=== PATIENT | male | born 2005 | race Two or more races ===

== ENCOUNTER 2024-12-22 09:19 | Outpatient (AMB) | payer MEDICAID, SELFPAY ==
[2024-12-22 09:33] VITALS: BMI 38.3
--- NOTE | 2024-12-22 09:33 | MHC.AMNUTRGE ---
VS Expanded 12/22/24 09:33 12/22/24 09:46 Height 5 ft 7.13 in 5 ft 7 in Weight 245 lb 9.519 oz 248 lb BMI 38.3 38.8 Intake Visit Reasons: Obesity Allergies No Known Allergies (No Known Allergies*) Allergy (Unverified 12/18/24 15:31) Nutrition Presentation Details: Pt presents MNT for obesity Pt reports gradually working on diet modifications. Patient reports he weighed 300 lbs about a year ago . Patient reports working on reducing sugars Food frequency: Fruits: 0-1 per day Fish: 0-1 per week Dairy: Greater than 5 servings per day Vegetables: 2 to 3 times a week Cookies pastries similar: Working on reducing Physical activity: Currently sedentary Alcohol smoking: Denies BS Monitoring Most Recent Diabetes Results: Cholesterol 153 MG/DL 12/17/17 HDL Cholesterol 45 MG/DL 12/17/17 Triglycerides 157 MG/DL 12/17/17 Creatinine, (0.5-1.4) 0.84 MG/DL 12/17/17 BUN, (9-16) 10 MG/DL 12/17/17 Sodium, (135-145) 137 MMOL/L 12/17/17 Potassium, (3.3-5.1) 4.3 MMOL/L 12/17/17 Chloride, (96-108) 103 MMOL/L 12/17/17 Calcium, (8.4-10.2) 10.2 MG/DL 12/17/17 AST, (5-37) 20 U/L 12/17/17 ALT, (0-40) 21 U/L 12/17/17 Total Protein, (6.5-8.0) 7.0 G/DL 12/17/17 Albumin, (3.5-5.0) 4.4 G/DL 12/17/17 VRG-Jirpeyq-Hb.Jeor Equation Height: 5 ft 7 in Weight: 248 lb Resting Metabolic Rate: 2094.01 Calculated Activity Level: Sedentary Calories Needed to Maintain Weight: 2512.81 Diagnosis Nutrition problem #1: overweight/obesity As related to (etiology) #1: excess energy intake and physical inactivity As evidenced by (sign/symptom) #1: high BMI Assessment & Plan Assessment & Plan (1) Obesity (BMI 30-39.9): Code(s): E66.9 - Obesity, unspecified Category: Medical Plan: current wt: 113 kg ( 12/20 ) est kcal needs as per MSJ: 2500 est protein needs as per 1 g/kg BW: 110 est fluid needs as per 30 ml/kg BW: 3400 Recommended fiber > 12 g /day and gradually increase up to 25-28 g /day or as tolerated Recommended sodium intake: Less than 2300 mg per day unless otherwise specified by DrMaurice Nutrition topics discussed : Reviewed (R), Pt verbalized understanding (V) , not applicable (N/A) R, V, : Healthy Plate Method Concept: R, : Carbohydrates: food sources of carbohydrates, relationship of carbohydrates to blood glucose, fatty liver GI health. Recommended total amount of carbohydrates per meals and snack. Differences between simple carbohydrates and complex carbohydrates R, : Lean protein foods including vegan , vegetarian sources of protein. Benefits of protein (including but not limited to healing, nutritional value , benefits in weight loss, glucose control R, V, N/A: Fats : Source of fats, benefits of fats. Difference between saturated and unsaturated fats. Saturated fats and its contribution to inflammation R, V, N/A: Fiber: food sources and role of fiber in the diet (including but not limited to its role as a prebiotic, benefits in constipation, role in IBS , role in glucose control and cholesterol level) R, V, N/A: Hydration: role of hydration and prevention of dehydration or over hydration. Foods and water content. R, V, N/A: Vitamins and Minerals in foods and supplements R, V, N/A: Interpreting food labels, including serving size, macronutrients, vitamins, minerals, allergens, ingredient list , % daily value Patient Instructions: Choose fiber rich foods, legumes, whole wheat pasta, round rice, whole grains Follow healthy plate method at supper and reduced total carb to 80 g Continue choosing low sugar beverages Engage in physical activity start with 30 minutes walking 3 times a week unless otherwise specified by her doctor Coding Level of Care Code Nutr Indiv Intake (36969) Diagnoses Obesity (BMI 30-39.9) E66.9 Time Spent (min) 30
--- OUTSIDE RECORDS SUMMARY | 2024-12-22 10:18 | XMS_ITS | Clinical Summary ---
Author Organization [facility] [employer] Address [address] [place] [address] 7 [place] [address] Care Team Providers Care Egg Packer Name Role Phone Minda Arambula MD Primary Care Provider [phone] Allergies No known active allergies Medications Blood Pressure kitIndications:E levated blood pressure reading 1 Units Once per day. 1 kit 12/10/2024 Active Active Problems Problem Noted Date Diagnosed Date Obesity 09/21/2016 Resolved Problems Problem Noted Date Diagnosed Date Resolved Date Depressive disorder 12/10/2024 12/11/19 Dyssomnia 12/10/2024 12/10/2024 Anxiety 08/13/2015 12/10/2024 Encounters Date Type Department Care Team Description 12/10/2024 9:15 AM EDT Office Visit [facility] [address] [place] [address] Minda Arambula MD Encounter for immunization (Primary Dx); Class 2 severe obesity with serious comorbidity and body mass index (BMI) of 37.0 to 37.9 in adult, unspecified obesity type; Encounter for health-related screening; Elevated blood pressure reading; Dietary counseling; Exercise counseling 12/09/2024 Telephone [facility] [address] [place] [address] Minda Arambula MD Chart Prep 12/03/2024 Patient Outreach [facility] [address] [place], [place] [id number] Emmanuel Juarez MD Pre-visit Planning (SDOH screening unable to complete ) from Last 3 Months Immunizations Immunization Administration Dates Next Due DTaP 06/22/2008, 6,2004,09/28 DTaP / HiB / IPV 2004 DTaP, 5 pertussis antigens 2004 HPV 9-Valent 02/08/2016,10/07/2015,08/13/2015 Hep A, ped/adol, 2 dose 02/08/2016,06/20,04/23/2006,06/20 Hep B, Adolescent or Pediatric 2004,2004,2004 HiB, unspecified 12/12/2005 Hib (PRP-T) 2004,2004 IPV 06/22/2008, 5,2004,07/29 Influenza injectable quadriv alent preservative free 12/13/2018,12/10/2017,02/08/2016,10/30 MMR 06/22/2008,06/20/2005 Meningococcal MCV4P ACYW-135 08/13/2015 Meningococcal Polysaccharide A,C,Y,W-135 TT Conjugate 12/10/2024 Pneumococcal Conjugate PCV 13 2004, 005 Pneumococcal Polysaccharide PPSV23 2004 Tdap 08/13/2015 Varicella 09/21/2016,06/22/2008,06/20/2005 Family History Medical History Relation Name Comments Depression Maternal Grandmother Seizures Maternal Grandmother Depression Mother Gout Paternal Grandmother Hemoglobinopathy Paternal Grandmother Hypertension Paternal Grandmother Relation Name Status Comments Maternal Grandmother Mother Paternal Grandmother Social History Tobacco Use Types Packs/Day Years Used Date Smoking Tobacco: Never Passive Smoke Exposure: Never Smokeless Tobacco: Never Tobacco Cessation:Counseling Given: Not Answered Alcohol Use Standard Drinks/Week Comments Never 0 (1 standard drink = 0.6 oz pur e alcohol) Depression Answer Date Recorded Patient Health Questionnaire-9 Score 12 12/12/2024 Patient Health Questionnaire-9 Score 12 12/12/2024 Last PHQ-9: Questionnaire Data Not on file 1 Depression Answer Date Recorded Patient Health Questionnaire-2 Score 5 12/12/2024 Sex and Gender Information Value Date Recorded Sex Assigned at Male 12/26/2021 10:29 AM EDT Legal Sex Male 10:29 AM EDT Gender Identity Male 12/26/2021 10:29 AM EDT Sexual Orientation Straight 12/11/2024 10 :13 AM EDT Last Filed Vital Signs Vital Sign Reading Time Taken Comments Blood Pressure 136/76 12/10/2024 9:45 AM EDT Pulse 84 12/10/2024 9:27 AM EDT Temperature 36.8 C (98.3 F) 12/10/2024 9:27 AM EDT Respiratory Rate 20 12/10/2024 9:27 AM EDT Oxygen Saturation 98% 12/10/2024 9:27 AM EDT Inhaled Oxygen Concentration - - Weight 112 kg (247 lb 12.8 oz) 12/10/2024 9:27 A M EDT Height 172.7 cm (5' 8 ) 12/10/2024 9:27 AM EDT Body Mass Index 37.68 12/10/2024 9:27 AM EDT Plan of Treatment Upcoming Encounters Date Type Department Care Team (Late st Contact Info) Description 01/15/2025 11:15 AM EST Office Visit [facility] [address] [place] [address] Minda Arambula MD [address] [place] [address] Health Maintenance Due Date Last Done Comments HIV Screening 2004 Lipid Panel 2004 SDOH Screening 2004 Family Planning (PISQ) 05/18/2019 Meningococcal B Vaccine (1 of 2 - Standard) 2020 Hepatitis C Screening 2022 Depression Monitoring 06/12/2025 12/12/2024, 025 DTaP/Tdap/Td Vaccines (7 - Td or Tdap) 08/12/2025 08/13/2015, 06/22/2008, 12/12/2005, Additional history exists Influenza Vaccine (#1) 2025 9, 12/10/2017, 02/08/2016, Additional history exists Postponed from 10/27/2024 (Patient Refused) COVID-19 Vaccine ( - season) 2025 Postponed from 10/27/2024 (Patient Refused) Chlamydia and Gonorrhea Screening 12/10/2025 Postponed from 2004 (Patient Refused) Tobacco Screening 12/10/2025 12/10/2024 Alcohol/Substance Use Screening 12/12/2025 12/12/2024 Disability Screening 12/12/2025 12/12/2024 Zoster Vaccines (1 of 2) 2054 RSV Patients and Patients Aged 60 years or older (1 - 1-dose 75+ series) 05/18/2079 Hepatitis B Vaccines Completed 2004, 2004, 2004 Pneumococcal Vaccine: Pediatrics (0 to 5 Years) and At-Risk Patients (6 to 49) Years Aged Out 2004, 2004, 2004 No longer eligible based on patient's age to complete this topic HIB Vaccines Completed 12/12/2005, 04/2004, 2004, Additional history exists IPV Vaccines Completed 06/22/2008, 04/2004, 2004, Additional history exists HPV Vaccines Completed 02/08/2016, 09/26, 08/13/2015 Hepatitis A Vaccines Completed 02/08/2016, 06/21/2015, 04/23/2006, Additional history exists Meningococcal Vaccine Aged Out 12/10/2024, 016 No longer eligible based on patient's age to complete this topic RSV under 20 months Aged Out No longe r eligible based on patient's age to complete this topic Rotavirus Vaccines Aged Out No longer eligible based on patient's age to complete this topic Insurance [facility] C3 Care Teams Egg Packer Relationship Specialty Start Date End Date Minda Arambula MD [address] [place] [address] PCP - General Family Medicine 12/10/24
--- OUTSIDE RECORDS SUMMARY | 2024-12-22 10:18 | XMS_ITS | Encounter Summary ---
Author Organization [facility] Address [address] [place] [id number] Phone Care Team Providers Care Drapery Examiner Name Role Phone Unavailable Primary Care Provider Unavailabl e Encounter Details Date Type Department Care Team (Late st Contact Info) Description 11/26/2014 Documentation EM Family Medicine [address] [place] [address] Family Medicine, Physician [address] [place], [place] [id number] Social History Tobacco Use Types Packs/Day Years Used Date Smoking Tobacco: Never Assessed Sex and Gender Information Value Date Recorded Sex Assigned at Not on file Legal Sex Male 4:58 PM EDT Gender Identity Not on file Sexual Orientation Not on file documented as of this encounter Plan of Treatment Not on file documented as of this encounter Visit Diagnoses Not on filedocumented in this encounter
--- OUTSIDE RECORDS SUMMARY | 2024-12-22 10:18 | XMS_ITS | Clinical Summary ---
Author Organization [facility] Address [address] [place] [address] Phone Care Team Providers Care Bioinformatics Computer Scientist Name Role Phone Unavailable Primary Care Provider Unavailabl e Immunizations Immunization Administration Dates Next Due DTaP 06/22/2008, 6,2004,09/28 DTaP / HiB / IPV 2004 Hep A, ped/adol 04/23/2006,06/20/2005 Hep B, ped/adol 2004,2004,2004 HiB 12/12/2005 Hib (PRP-T) 2004 IPV 06/22/2008,2004 Influenza, injectable, quadr ivalent, preservative free 10/30/2014 MMR 06/22/2008,06/20/2005 Pneumococcal Conjugate 13-Valent 2004,080 04/2004 Pneumococcal Polysaccharide 2004 Varicella 06/22/2008,06/20/2005 Family History Relation Name Status Comments Father Alive Father: Alive a nd well Maternal Grandmother Alive Materna l grandmother: Alive and well, Seizure disorder Mother Alive Mother: Alive a nd well Other Alive Close relative: Migraines Sister Alive Sister: Alive a nd well Social History Tobacco Use Types Packs/Day Years Used Date Smoking Tobacco: Never Assessed Sex and Gender Information Value Date Recorded Sex Assigned at Not on file Legal Sex Male 4:58 PM EDT Gender Identity Not on file Sexual Orientation Not on file Last Filed Vital Signs Vital Sign Reading Time Taken Comments Blood Pressure 112/70 12/04/2014 12:00 AM EDT Pulse 77 12/04/2014 12:00 AM EDT Temperature 37.7 C (99.9 F) 12/04/2014 12:00 AM EDT Respiratory Rate - - Oxygen Saturation - - Inhaled Oxygen Concentration - - Weight 66 kg (145 lb 9.6 oz) 12/04/2014 12:00 AM EDT Height 141.5 cm (4' 7.7 ) 12/04/2014 12:00 AM ED T Body Mass Index 32.99 12/04/2014 12:00 AM EDT Plan of Treatment Health Maintenance Due Date Last Done Comments DTaP,Tdap,and Td Vaccines (6 - Tdap) 05/18/2015 06/22/2008, 12/12/2005, 2004, Additional history exists HPV Vaccines (1 - Male 3-dose series) 05/18/2019 Men B Vaccine (1 of 2 - Standard) 2020 Influenza Vaccines (#1) 2024 10/30/2014 COVID-19 Vaccine (1 - 2024- season) 2024 Hepatitis B Vaccines Completed 2004, 2004, 2004 Pneumococcal Vaccine Aged Out 2004, 2004, 2004 No longer eligible based on patient's age to complete this topic HIB Vaccines Completed 12/12/2005, 04/2004, 2004 Hepatitis A Vaccines Completed 04/23/2006, 06/21/19 IPV Vaccines Completed 06/22/2008, 04/2004, 2004 MMR Vaccines Completed 06/22/2008, 06/20/2005 Varicella Vaccines Completed 06/22/2008, 06/20/2005 Meningococcal Vaccine Aged Out No latisha vick eligible based on patient's age to complete this topic
--- OUTSIDE RECORDS SUMMARY | 2024-12-22 10:18 | XMS_ITS | Encounter Summary ---
Author Organization [employer] Address [address] [place] [address] [address] [place] [address] Care Team Providers Care Sports Leadership Instructor Name Role Phone Annette Menon MD Primary Care Provider [phone] Minda Arambula MD Primary Care Provider [phone] Encounter Details Date Type Department Care Team (Latest Contact Info) Description 05/03/[address] [facility] CONVERSION[facility] Dental, Provider, DDS Social History Tobacco Use Types Packs/Day Years Used Date Smoking Tobacco: Never Assessed Sex and Gender Information Value Date Recorded Sex Assigned at Male 12/26/2021 10:29 AM EDT Legal Sex Male 10:29 AM EDT Gender Identity Male 12/26/2021 10:29 AM EDT Sexual Orientation Straight 12/11/2024 10 :13 AM EDT documented as of this encounter Plan of Treatment Upcoming Encounters Date Type Department Care Team ([facility] st Contact Info) Description 01/15/2025 11:15 AM EST Office Visit [facility] [address] [place] [address] Minda Arambula MD [address] [place] [address] documented as of this encounter Visit Diagnoses Not on filedocumented in this encounter Care Teams Sports Leadership Instructor Relationship Specialty Start Date End Date Annette Menon MD [address] [place] [address] PCP - General Pediatrics 07/13/15 03/28/23 Minda Arambula MD [address] [place] [id number] PCP - General Family Medicine 12/10/24 documented as of this encounter
--- OUTSIDE RECORDS SUMMARY | 2024-12-22 10:18 | XMS_ITS | Encounter Summary ---
Author Organization [facility] Address [address] [place] [address] Phone Care Team Providers Care Form Designer Name Role Phone Unavailable Primary Care Provider Unavailabl e Encounter Details Date Type Department Care Team (Late st Contact Info) Description 11/04/2014 Documentation EM Family Medicine [address] [place] [address] Family Medicine, Physician [address] [id number] Social History Tobacco Use Types Packs/Day Years [...]
--- OUTSIDE RECORDS SUMMARY | 2024-12-22 10:18 | XMS_ITS | Encounter Summary ---
Author Organization [facility] Address [address] [place] [address] Phone Care Team Providers Care Apartment Maintenance Name Role Phone Unavailable Primary Care Provider Unavailabl e Encounter Details Date Type Department Care Team (Late st Contact Info) Description 11/26/2014 Documentation EM Family Medicine [address] [place] [address] Family Medicine, Physician [address], [place] [phone] Social History Tobacco Use Types Packs/Day Years [...]
--- OUTSIDE RECORDS SUMMARY | 2024-12-22 10:18 | XMS_ITS | Encounter Summary ---
Author Organization [facility] Address [address] [place] [address] Phone Care Team Providers Care Bank Vault Clerk Name Role Phone Unavailable Primary Care Provider Unavailabl e Encounter Details Date Type Department Care Team (Late st Contact Info) Description 10/12/2016 Conversion Encounter [facility] - [address] [address] Social History Tobacco Use Types Packs/Day Years [...]
--- OUTSIDE RECORDS SUMMARY | 2024-12-22 10:18 | XMS_ITS | Encounter Summary ---
Author Organization [facility] Address [address] [place] [address] Phone Care Team Providers Care Risk Control Analyst Name Role Phone Unavailable Primary Care Provider Unavailabl e Encounter Details Date Type Department Care Team (Late st Contact Info) Description 12/08/2014 Documentation EM Family Medicine [address] [place] [address] Family Medicine, Physician [address] [phone] Social History Tobacco Use Types Packs/Day Years [...]
[2024-12-30 08:51] VITALS: BMI 38.8
== END 2024-12-22 10:15 | disposition home or self-care (01) ==
LOC: HO.ENCR 09:19
PROVIDERS: PCP Family Medicine; Visit Provider Dietitian, Registered
DX: E66.9 Obesity, unspecified (principal)

== ENCOUNTER → 2024-12-22 09:19 | Outpatient (BNVA) | payer MEDICAID, SELFPAY | PROVIDERS: PCP Family Medicine; Visit Provider Dietitian, Registered | DX: E66.9 Obesity, unspecified (principal) | CPT/HCPCS: 97802 ==